=== PATIENT | male | born 1960 | race African-American/Black ===

== ENCOUNTER 2017-04-22 04:45 | Emergency (ER) | payer MEDICAID ==
[~2017-04-22] VITALS: Ht 185.4 cm; Wt 81.6 kg
--- NOTE | 2017-04-22 04:45 | NUR ---
PT [facility]. TAKEN TO BED 2
[2017-04-22 04:49] VITALS: BP 121/88
--- NOTE | 2017-04-22 05:01 | NUR ---
BIBA WITH C/O PAIN IN BOTH FEET/DIZZINESS MED HX: [place] WITH 2 STINTS PLACED 2015/HTN/DM PT DENIES N/V/D; SKIN IS PINK/WARM/DRY; AAOX4 WITH EVEN AND STEADY GAIT; LUNGS CLEAR BL; HR EVEN AND REGULAR; PT DENIES ANY FEVER, CP, SOB, OR COUGH AT THIS TIME; PATIENT STATES PAIN OF 9/10 AT THIS TIME; VSS; PATIENT POSITIONED FOR COMFORT; HOB ELEVATED; BEDRAILS UP X2; BED DOWN. ER MD MADE AWARE OF PT STATUS.
[2017-04-22] MEDS ORDERED: ASPIRIN 81 MG TAB.CHEW PO ONE (05:15)
[2017-04-22] MEDS ORDERED: MECLIZINE 25 MG TAB PO ONE (05:15)
[2017-04-22] MEDS ORDERED: KETOROLAC 30 MG/ML VIAL IVP ONE (05:15)
[2017-04-22] MEDS ORDERED: NACL 0.9% 1,000 ML IV ONE (05:15)
--- NOTE | 2017-04-22 05:50 | NUR ---
PT TO CT VIA [facility] IN STABLE CONDITION
[2017-04-22 06:10] LABS: HEMATOCRIT 45.3 % (36-52); HEMOGLOBIN 14.3 g/dL (12.0-18.0); MEAN CORPUSCULAR HEMOGLOBIN 28 pg (27-31); MEAN CORPUSCULAR HGB CONC 32 g/dL (33-37); MEAN CORPUSCULAR VOLUME 87 fL (80-94); PLATELET COUNT (AUTO) 160 K/uL (140-450); RED BLOOD CELL COUNT(AUTO) 5.18 MIL/uL (4.20-6.10); WHITE BLOOD COUNT (AUTO) 7.3 K/uL (4.8-10.8)
[2017-04-22 06:16] LABS: ANION GAP 14.1 (8-16); CARBON DIOXIDE 29.8 mmol/L (21-32); CREATININE 1.3 mg/dL (0.7-1.3); POTASSIUM 3.9 mmol/L (3.5-5.1)
[2017-04-22 06:17] LABS: PROTHROMBIN TIME 11.1 secs (10.8-13.4)
[2017-04-22 06:23] LABS: ALBUMIN 3.8 g/dL (3.4-5.0); TOTAL BILIRUBIN 0.6 mg/dL (0.0-1.0)
[2017-04-22 06:25] LABS: EOSINOPHILS % (MANUAL) 1 % (0-4); LYMPHOCYTES % (MANUAL) 42 % (20-46); MONOCYTES % (MANUAL) 9 % (5-12)
--- NOTE | 2017-04-22 07:20 | NUR ---
Pt provided with a breakfast tray. Pt eating and tolerating well.
[2017-04-22 07:48] VITALS: BP 126/79
--- NOTE | 2017-04-22 07:48 | NUR ---
Patient given written and verbal discharge instructions and verbalizes understanding. Given copies of tests performed during visit. Patient is awake, alert and oriented. Ambulatory with steady gait. Resources for shelters provided. Given list of available shelters in surrounding areas. Homeless waiver form signed and placed in chart. Pt states "I'm going to [place]." Bus pass provided. Patient discharged with v/s stable. Written and verbal after care instructions given and explained. Patient alert, oriented and verbalized understanding of instructions. Ambulatory with steady gait. All questions addressed prior to discharge. ID band removed. Patient advised to follow up with PMD. Rx of Motrin 800mg given. Patient educated on indication of medication including possible reaction and side effects. Opportunity to ask questions provided and answered.
== END 2017-04-22 07:48 | disposition home or self-care (01) ==
LOC: MED 04:45
DX: E86.0 Dehydration (principal); I25.2 Old myocardial infarction; I10 Essential (primary) hypertension; F17.210 Nicotine dependence, cigarettes, uncomplicated; Z59.0 Homelessness; Z88.0 Allergy status to penicillin
CPT/HCPCS: 36415; 70450; 71045; 80053; 82948; 84484; 85025; 85610; 85730; 93005; 96361; 96374; 99285; J1885; J7030; J8597; Q0092